=== PATIENT | male | born 1960 | race Caucasian/White ===

== ENCOUNTER 2018-02-02 03:47 | Emergency (ER) | payer SELFPAY ==
[~2018-02-02 03:47] MED LIST: NORVASC5 MG PO; TYLENOL WITH C1 EACH PO
== END 2018-02-02 07:03 ==
LOC: EME → EDBD 03:47 → EME 07:03
PROC: 5A1221Z Performance of Cardiac Output, Continuous (ICD-10-PCS; principal; 2018-02-02)
DX: I46.9 Cardiac arrest, cause unspecified (principal)
CPT/HCPCS: 92950; 99281; 99284